=== PATIENT | female | born 1995 | race African-American/Black ===

== ENCOUNTER 2017-01-29 16:36 | Emergency (ER) | payer SELFPAY ==
[2017-01-29 17:13] LABS: Bilirubin Negative (Negative); Blood, Urine Small (Negative); Glucose, Urine (Dipstick) Negative (Negative); Ketone, Urine Negative (Negative); Nitrite Negative (Negative); Protein, Urine (Dipstick) Negative (Neg-Trace); Urobilinogen 0.2 mg/dL (0.2-1.0)
[2017-01-29 17:14] LABS: Bacteria/HPF 2+ HPF (None Seen); Hyaline Casts/LPF 7-10 HYALINE CAST LPF (0-3 Hyaline)
== END 2017-01-29 18:08 | disposition home or self-care (01) ==
LOC: ERS 16:36
DX: N89.8 Other specified noninflammatory disorders of vagina (principal); J45.909 Unspecified asthma, uncomplicated
CPT/HCPCS: 81003; 81015; 81025; 87077; 87086; 87480; 87491; 87510; 87591; 87660; 99283

== ENCOUNTER 2017-05-13 10:04 | Emergency (ER) | payer BC | END 2017-05-13 11:45 | disposition home or self-care (01) | LOC: ERS 10:04 | DX: I95.9 Hypotension, unspecified (principal); J45.909 Unspecified asthma, uncomplicated | CPT/HCPCS: 99283 ==

== ENCOUNTER 2021-10-12 09:31 | Emergency (ER) | payer OTHER, SELFPAY ==
[2021-10-12] MEDS ORDERED: Bicillin LA 1.2 MILLION UNITS/2 ML SYRINGE ONE (10:11)
[2021-10-12] MEDS ORDERED: Dexamethasone 10 MG/ML VIAL ONE (10:11)
== END 2021-10-12 10:35 | disposition home or self-care (01) ==
LOC: ERS 09:31
DX: J02.0 Streptococcal pharyngitis (principal)
CPT/HCPCS: 96372; 99282; J0561; J1100